=== PATIENT | male | born 1960 | race Caucasian/White ===

== ENCOUNTER 2017-08-11 07:51 | Emergency (ER) | payer MEDICARE, OTHER, SELFPAY ==
[2017-08-11] MEDS ORDERED: Morphine 4 MG/ML VIAL ONE ×2 (08:01→10:56)
[2017-08-11 08:41] LABS: #Lymphocytes 1.3 thou/uL (1.20-3.40); #Monocytes 1.4 thou/uL (0.11-0.59); #Neutrophils 15.5 thou/uL (1.40-6.50); %Basophils 0.1 % (0.0-1.0); %Eosinophils 0.2 % (0.0-10.0); %Lymphocytes 7.1 % (21.0-51.0); %Monocytes 7.8 % (0.0-10.0); %Neutrophils 84.7 % (42.0-75.0); Hemoglobin 11.4 g/dL (14.0-18.0); Mean Corpuscular HGB CONC 33.1 g/dL (32.0-36.0); Mean Corpuscular Hemoglobin 29.9 pg (27.0-31.0); Mean Corpuscular Volume 90.5 fl (80.0-94.0); Mean Platelet Volume 7.1 fL (7.4-10.4); Platelet Count 320 thou/uL (130-400); RBC Distribution Width 14.9 % (11.5-14.5); Red Blood Cell (RBC) Count 3.82 mill/uL (4.70-6.10); White Blood Cell (WBC) Count 18.3 thou/uL (4.8-10.8)
--- NOTE | 2017-08-11 08:55 | RAD ---
LEFT FEMUR 2 VIEWS: Date: 08/11/17 HISTORY: Left leg pain. COMPARISON: None. FINDINGS: There is a left [id number] amputation. The amputation margins are sharp. There are stents throughout the left femoral artery. Extensive hardware of the femur. No acute displaced fracture or malalignment. IMPRESSION: 1. No acute displaced fracture or malalignment. 2. Sharp margins of the [id number] amputation. POS: [facility]
[2017-08-11 09:05] LABS: Anion Gap 13 mmol/L (10-20); BUN (Urea Nitrogen) 13 mg/dL (8.4-25.7); Calc. Creatinine Clearance 0 mL/min (70-130); Calcium 8.8 mg/dL (7.8-10.44); Carbon Dioxide 22 mmol/L (22-29); Chloride 98 mmol/L (98-107); Estimated GFR-MDRD Greater than 90; Glucose 116 mg/dL (70-105); Potassium 3.6 mmol/L (3.5-5.1); Sodium 129 mmol/L (136-145)
--- NOTE | 2017-08-11 09:41 | ULT ---
LEFT LOWER EXTREMITY VENOUS DOPPLERE: Date: 08/11/17 HISTORY: Lower extremity pain. COMPARISON: None. FINDINGS: Real-time Tee scale and color Doppler with spectral analysis of the left lower extremity venous sys tem was performed with the linear transducer. The common femoral, femoral, proximal portions of great er saphenous and deep femoral veins were interrogated. Normal flow, augmentation, and compression. IMPRESSION: No deep venous thrombosis. POS: [facility]
[2017-08-11 10:22] LABS: Bilirubin Negative (Negative); Blood, Urine Moderate (Negative); Clarity CLOUDY (Clear); Glucose, Urine (Dipstick) >=1000 mg/dL (Negative); Leukocyte Negative (Negative); Nitrite Negative (Negative); Protein, Urine (Dipstick) 300 mg/dL (Neg-Trace); Specific Gravity, Urine 1.022 (1.002-1.036); Urobilinogen 0.2 mg/dL (0.2-1.0); pH, Urine 5.5 (5.0-9.0)
[2017-08-11 10:25] LABS: Bacteria/HPF Rare-Few HPF (None Seen); Hyaline Casts/LPF 4-6 HYALINE CAST LPF (0-3 Hyaline); Pathc Cast-AUWi Flag 0.94 (0-2.49); RBC/HPF 0-3 HPF (0-3); Squamous Epithelial 0-3 HPF (0-3); WBC/HPF 0-3 HPF (0-3)
[2017-08-11 10:28] LABS: Yeast-AUWi Flag 63.8 (0-25.0)
[2017-08-11 10:40] LABS: Crystals/HPF 1+ AMORPH URATES HPF (Negative); Yeast-All Forms None Seen HPF (None Seen)
[2017-08-11] MEDS ORDERED: cefTRIAXone\\ROCEPHIN 500 MG VIAL ONE (11:17)
[2017-08-11] MEDS ORDERED: Lidocaine 1% (PF) 30 ML VIAL ONE (11:17)
--- NOTE | 2017-08-11 12:03 | RAD ---
AP VIEW CHEST: Date: 08/11/17 HISTORY: Cough, leukocytosis. FINDINGS: AP view of chest is obtained and demonstrates a right jugular MediPort catheter with distal tip overl nishant the SVC. Sternotomy wires seen. There is a dorsal column stimulator in place. The lungs are well aerated. No evidence of acute intrathoracic abnormality seen. No evidence of effusions, pneumonia, o r pneumothorax seen. IMPRESSION: No evidence of acute intrathoracic abnormality seen. POS: [facility]
== END 2017-08-11 11:56 | disposition home or self-care (01) ==
LOC: ERS 07:51
DX: M25.552 Pain in left hip (principal); E11.9 Type 2 diabetes mellitus without complications; I10 Essential (primary) hypertension; C18.9 Malignant neoplasm of colon, unspecified; M79.605 Pain in left leg
CPT/HCPCS: 36415; 51701; 71045; 80048; 81003; 81015; 83605; 85025; 85379; 87040; 87149; 96372; J0696; J2001; J2270